=== PATIENT | male | born 1955 | race Caucasian/White ===

== ENCOUNTER 2017-02-09 17:17 | Inpatient (IN) | payer OTHER ==
[~2017-02-09] VITALS: Ht 172.7 cm; Wt 53.2 kg
[2017-02-09] MEDS ORDERED: IV NORMAL SALINE 1000 ML BAG IV ONE (17:30)
[2017-02-09] MEDS ORDERED: FINA5TAB11 PO (17:44)
[2017-02-09] MEDS ORDERED: FURO-152 PO (17:44)
[2017-02-09] MEDS ORDERED: LANTUS INSULIN SQ (17:44)
[2017-02-09] MEDS ORDERED: MAGN400T30 PO (17:44)
[2017-02-09] MEDS ORDERED: ACET-2023 PO (17:44)
[2017-02-09] MEDS ORDERED: FERR325T28 PO (17:44)
[2017-02-09] MEDS ORDERED: CHOL50004 PO (17:44)
[2017-02-09] MEDS ORDERED: FAMO-132 PO (17:44)
[2017-02-09] MEDS ORDERED: ATOR40TA PO (17:44)
[2017-02-09] MEDS ORDERED: TAMS0.4C34 PO (17:44)
[2017-02-09] MEDS ORDERED: MECL-102 PO (17:44)
[2017-02-09] MEDS ORDERED: REGULAR INSULIN (17:44)
[2017-02-09] MEDS ORDERED: NA P133E RC (17:44)
[2017-02-09] MEDS ORDERED: GABA-534 PO (17:44)
[2017-02-09] MEDS ORDERED: BUPR150T10 PO (17:44)
[2017-02-09] MEDS ORDERED: ASCO500C16 PO (17:44)
[2017-02-09] MEDS ORDERED: LISI-603 PO (17:44)
[2017-02-09] MEDS ORDERED: CALC0.253 PO (17:44)
[2017-02-09] MEDS ORDERED: ASPI81TA31 PO (17:44)
[2017-02-09] MEDS ORDERED: SENN-167 PO (17:44)
[2017-02-09] MEDS ORDERED: BISA5TAB13 PR (17:44)
[2017-02-09 17:59] LABS: BASOPHILS # (AUTO) 0.1 K/uL (0.0-8.0); BASOPHILS % (AUTO) 0.8 % (0.0-2.0); EOSINOPHILS # (AUTO) 0.1 K/uL (0.0-0.7); EOSINOPHILS % (AUTO) 1.5 % (0.0-7.0); HEMATOCRIT 29.9 % (36.7-47.1); HEMOGLOBIN 10.3 g/dL (12.5-16.3); LYMPHOCYTES # (AUTO) 2.3 K/uL (20.0-40.0); MEAN CORPUSCULAR HGB CONC 34 g/dL (32.5-36.3); MEAN CORPUSCULAR VOLUME 93.2 fL (73.0-96.2); MONOCYTES # (AUTO) 0.7 K/uL (2.0-10.0); MONOCYTES % (AUTO) 7.9 % (0.0-11.0); NEUTROPHILS # (AUTO) 5.4 K/uL (1.8-8.9); NEUTROPHILS % (AUTO) 62.8 % (38.5-71.5); PLATELET COUNT (AUTO) 253 K/uL (152-348); RED BLOOD CELL COUNT(AUTO) 3.21 MIL/uL (4.06-5.63); WHITE BLOOD COUNT (AUTO) 8.6 K/uL (3.6-10.2)
[2017-02-09 18:01] LABS: CREATININE 1.8 mg/dL (0.6-1.3)
[2017-02-09 18:07] LABS: BILIRUBIN,DIRECT 0.1 mg/dL (0.0-0.2); BILIRUBIN,TOTAL 0.3 mg/dL (0.2-1.0); TOTAL PROTEIN, SERUM 6.8 g/dL (6.4-8.2)
[2017-02-09 18:56] VITALS: BP 157/77
[2017-02-09 19:00] VITALS: BP 152/74
[2017-02-09] MEDS ORDERED: FLEET ENEMA 133 ML BOTTLE RC PRN (19:00)
[2017-02-09] MEDS ORDERED: MECLIZINE HCL 25 MG TABLET PO PRN (19:00)
[2017-02-09] MEDS ORDERED: ONDANSETRON 4 MG/2 ML VIAL IV PRN (19:00)
[2017-02-09] MEDS ORDERED: DEXTROSE 50% 50 ML DISP.SYRIN IV PRN (19:00)
[2017-02-09] MEDS ORDERED: ACETAMINOPHEN 325 MG TABLET PO PRN (19:00)
--- NOTE | 2017-02-09 19:30 | NUR ---
nsg: pt received a/o x 2, no acute distress noted. denies discomfort. tele, SR. has right-sided weakness but able to move all extremities. cont to monitor.
[2017-02-09] MEDS: IV NS 1000 ML 1,000 ML IV PRN (20:18)
[2017-02-09] MEDS: FINASTERIDE 5 MG TABLET PO SCH (20:18)
[2017-02-09] MEDS: SENNOSIDES 1 TABLET PO SCH (20:18)
[2017-02-09] MEDS: ATORVASTATIN 40 MG TABLET PO SCH (20:18)
[2017-02-09] MEDS: ENOXAPARIN SODIUM 40 MG/0.4 ML DISP.SYRIN SQ SCH (20:19)
[2017-02-09] MEDS: BLOOD SUGAR DIAGNOSTIC 1 EACH STRIP VI SCH ×2 (20:34→21:30)
[2017-02-09] MEDS: INSULIN REGULAR, HUMAN 300 UNITS/3 ML VIAL SQ PRN (20:36)
[2017-02-09] MEDS ORDERED: INSULIN DETEMIR 300 UNIT/3 ML CARTRIDGE SQ SCH (21:00)
[2017-02-09 23:49] VITALS: BP 107/57
[2017-02-10 04:00] VITALS: BP 120/67
--- NOTE | 2017-02-10 06:33 | NUR ---
nsg: all needs attended. no change in condition. tele, SR.
[2017-02-10 06:49] LABS: EOSINOPHILS # (AUTO) 0.1 K/uL (0.0-0.7); HEMOGLOBIN 10.1 g/dL (12.5-16.3)
[2017-02-10 06:57] LABS: BILIRUBIN,TOTAL 0.3 mg/dL (0.2-1.0); CREATININE 1.7 mg/dL (0.6-1.3); MAGNESIUM 1.5 mg/dL (1.8-2.4); PHOSPHOROUS 3.5 mg/dL (2.5-4.9); POTASSIUM 3.7 mmol/L (3.5-5.1); TOTAL PROTEIN, SERUM 6.6 g/dL (6.4-8.2)
[2017-02-10 07:05] LABS: BASOPHILS % (AUTO) 0.3 % (0.0-2.0); EOSINOPHILS % (AUTO) 0.7 % (0.0-7.0); HEMATOCRIT 29.3 % (36.7-47.1); LYMPHOCYTES # (AUTO) 2.4 K/uL (20.0-40.0); LYMPHOCYTES % (AUTO) 18.8 % (20.5-51.5); MEAN CORPUSCULAR HEMOGLOBIN 31.8 uug (23.8-33.4); MEAN CORPUSCULAR HGB CONC 35 g/dL (32.5-36.3); MEAN CORPUSCULAR VOLUME 91.9 fL (73.0-96.2); MONOCYTES % (AUTO) 7.8 % (0.0-11.0); NEUTROPHILS # (AUTO) 9.2 K/uL (1.8-8.9); NEUTROPHILS % (AUTO) 72.4 % (38.5-71.5); PLATELET COUNT (AUTO) 262 K/uL (152-348); RED BLOOD CELL COUNT(AUTO) 3.18 MIL/uL (4.06-5.63); WHITE BLOOD COUNT (AUTO) 12.7 K/uL (3.6-10.2)
[2017-02-10 07:07] LABS: THYROID STIMULATING HORMONE 3.077 mIU/mL (0.358-3.740)
[2017-02-10] MEDS: BLOOD SUGAR DIAGNOSTIC 1 EACH STRIP VI SCH ×4 (07:14→20:18)
--- NOTE | 2017-02-10 08:00 | NUR ---
LOW BS 21 REPORTED BY DOROTHY PERRY. PATIENT IS ASYMPTOMATIC, ALERT AND ORIENTED. D50 WAS ADMINISTERED BY IV PROCEED WITH MILK. AT 0750 BS 144. 0750 BS 132. WILL CONTINUE MONITORING
[2017-02-10] MEDS ORDERED: FAMOTIDINE 20 MG TABLET PO SCH (09:00)
[2017-02-10] MEDS: buPROPion SR 150 MG TABLET.SA PO SCH (09:08)
[2017-02-10] MEDS: TAMSULOSIN HCL 0.4 MG CAP.SR.24H PO SCH (09:08)
[2017-02-10] MEDS: CALCITRIOL 0.25 MCG CAPSULE PO SCH (09:08)
[2017-02-10] MEDS: FAMOTIDINE 20 MG TABLET PO SCH (09:09)
[2017-02-10] MEDS: GABAPENTIN 300 MG CAPSULE PO SCH (09:09)
[2017-02-10] MEDS: FERROUS SULFATE 325 MG TABEC PO SCH (09:09)
[2017-02-10] MEDS: ASPIRIN 81 MG TAB.CHEW PO SCH (09:09)
[2017-02-10] MEDS: MAGNESIUM OXIDE 400 MG TABLET PO SCH ×2 (09:09→16:29)
[2017-02-10 11:03] VITALS: BP 122/67
--- NOTE | 2017-02-10 11:33 | NUR ---
BS 130, NO INSULIN GIVEN DUE TO IMBALANCE OF BS, WILL CONTINUE MONITORING
[2017-02-10] MEDS: IV NS 1000 ML 1,000 ML IV PRN (13:06)
[2017-02-10 15:12] VITALS: BP 131/69
[2017-02-10] MEDS: INSULIN REGULAR, HUMAN 300 UNIT/3 ML VIAL SQ PRN (16:23)
--- NOTE | 2017-02-10 18:13 | NUR ---
Patient been in bes sleeping intermittently. No s/s of distress noted. BS been controlled during the day. Patient been able to eat independently with minimum assistance and was able to go to the bathroom safely with nurse help. All medications were crushed and given. Cooperative with all interventions. Safety and comfort provided. Will continue monitoring.
[2017-02-10] MEDS: IV 1/2NS 1000 ML 1,000 ML IV PRN (18:31)
--- NOTE | 2017-02-10 19:30 | NUR ---
Received patient laying comfortably in bed, No acute distress noted. Noted slurred speak. A&O x 4. BRP with minimum assist. Urinating well. Room is clutter free. IVF infusing. Safety initiated. Call light within reach. Will continue to monitor.
[2017-02-10] MEDS: SENNOSIDES 1 TABLET PO SCH (20:16)
[2017-02-10] MEDS: ATORVASTATIN 40 MG TABLET PO SCH (20:16)
[2017-02-10] MEDS: FINASTERIDE 5 MG TABLET PO SCH (20:16)
[2017-02-10] MEDS: ENOXAPARIN SODIUM 40 MG/0.4 ML DISP.SYRIN SQ SCH (20:26)
[2017-02-10] MEDS: INSULIN REGULAR, HUMAN 300 UNITS/3 ML VIAL SQ PRN (20:27)
[2017-02-10 20:30] VITALS: BP 121/65
--- NOTE | 2017-02-11 05:06 | NUR ---
No changes t/o shift. Patient slept t/o shift. No Acute distress noted. Patient took all meds as ordered. Vital signs stable. IVF infusing. Patient was offered snacks around 0200 finished it 100%. BRP. Urinating well. Comfort and safety measures maintained t/o shift. All meds given as ordered. All needs met.
[2017-02-11] MEDS: BLOOD SUGAR DIAGNOSTIC 1 EACH STRIP VI SCH ×4 (06:32→20:13)
[2017-02-11 06:49] VITALS: BP 120/66
[2017-02-11 06:58] LABS: BASOPHILS # (AUTO) 0.1 K/uL (0.0-8.0); BASOPHILS % (AUTO) 0.9 % (0.0-2.0); EOSINOPHILS # (AUTO) 0.2 K/uL (0.0-0.7); EOSINOPHILS % (AUTO) 2.2 % (0.0-7.0); HEMATOCRIT 26.8 % (36.7-47.1); HEMOGLOBIN 9.3 g/dL (12.5-16.3); LYMPHOCYTES # (AUTO) 2.8 K/uL (20.0-40.0); LYMPHOCYTES % (AUTO) 35.1 % (20.5-51.5); MEAN CORPUSCULAR HEMOGLOBIN 32.1 uug (23.8-33.4); MEAN CORPUSCULAR HGB CONC 35 g/dL (32.5-36.3); MEAN CORPUSCULAR VOLUME 92.5 fL (73.0-96.2); MONOCYTES # (AUTO) 0.7 K/uL (2.0-10.0); MONOCYTES % (AUTO) 8.4 % (0.0-11.0); NEUTROPHILS # (AUTO) 4.3 K/uL (1.8-8.9); NEUTROPHILS % (AUTO) 53.4 % (38.5-71.5); PLATELET COUNT (AUTO) 235 K/uL (152-348)
[2017-02-11 07:06] LABS: BILIRUBIN,TOTAL 0.3 mg/dL (0.2-1.0); CREATININE 1.5 mg/dL (0.6-1.3); MAGNESIUM 1.5 mg/dL (1.8-2.4); PHOSPHOROUS 2.9 mg/dL (2.5-4.9); POTASSIUM 4.2 mmol/L (3.5-5.1); TOTAL PROTEIN, SERUM 6.3 g/dL (6.4-8.2)
[2017-02-11] MEDS: TAMSULOSIN HCL 0.4 MG CAP.SR.24H PO SCH (08:50)
[2017-02-11] MEDS: GABAPENTIN 300 MG CAPSULE PO SCH (08:50)
[2017-02-11] MEDS: MAGNESIUM OXIDE 400 MG TABLET PO SCH ×2 (08:50→17:00)
[2017-02-11] MEDS: FERROUS SULFATE 325 MG TABEC PO SCH (08:50)
[2017-02-11] MEDS: FAMOTIDINE 20 MG TABLET PO SCH (08:50)
[2017-02-11] MEDS: buPROPion SR 150 MG TABLET.SA PO SCH (08:50)
[2017-02-11] MEDS: CALCITRIOL 0.25 MCG CAPSULE PO SCH (08:51)
[2017-02-11] MEDS: ASPIRIN 81 MG TAB.CHEW PO SCH (08:51)
[2017-02-11 11:32] VITALS: BP 127/68
[2017-02-11] MEDS: INSULIN REGULAR, HUMAN 300 UNIT/3 ML VIAL SQ PRN (11:38)
[2017-02-11] MEDS: IV 1/2NS 1000 ML 1,000 ML IV PRN (12:26)
[2017-02-11] MEDS ORDERED: MAGNESIUM SULFATE/D5W 100 ML IV SCH (13:30)
[2017-02-11 15:34] VITALS: BP 123/61
--- NOTE | 2017-02-11 19:30 | NUR ---
Received patient laying comfortably in bed. No acute distress noted. A&O x 3 but hard of speaking possibly due to past CVA. IVF infusing on the Right FA. Patient calls to use the restroom with standby assist. Room remains clutter free. Bed is in low and locked position. Safety initiated, call light within reach, will continue to monitor.
[2017-02-11] MEDS: ATORVASTATIN 40 MG TABLET PO SCH (20:09)
[2017-02-11] MEDS: SENNOSIDES 1 TABLET PO SCH (20:09)
[2017-02-11] MEDS: FINASTERIDE 5 MG TABLET PO SCH (20:09)
[2017-02-11] MEDS: INSULIN REGULAR, HUMAN 300 UNITS/3 ML VIAL SQ PRN (20:20)
[2017-02-11] MEDS: ENOXAPARIN SODIUM 40 MG/0.4 ML DISP.SYRIN SQ SCH (20:20)
[2017-02-11 20:40] VITALS: BP 134/76
[2017-02-12 04:28] VITALS: BP 143/75
--- NOTE | 2017-02-12 05:16 | NUR ---
No changes t/o shift. Patient slept t/o shift. Difficult time speaking. IVF infusing. BRP. Room kept clutter free. Bed is in low and locked position. Offered snack, finished 100%. Safety and comfort measures maintained t/o shift. All meds given as ordered. All needs met.
--- NOTE | 2017-02-12 05:48 | NUR ---
Patient refused blood work.
--- NOTE | 2017-02-12 06:26 | NUR ---
Patient refused IV Fluids. will continue to monitor.
[2017-02-12] MEDS: BLOOD SUGAR DIAGNOSTIC 1 EACH STRIP VI SCH ×3 (06:31→17:00)
[2017-02-12 07:36] LABS: CREATININE 1.5 mg/dL (0.6-1.3); MAGNESIUM 1.8 mg/dL (1.8-2.4); POTASSIUM 4.2 mmol/L (3.5-5.1)
[2017-02-12] MEDS: TAMSULOSIN HCL 0.4 MG CAP.SR.24H PO SCH (09:12)
[2017-02-12] MEDS: FAMOTIDINE 20 MG TABLET PO SCH (09:12)
[2017-02-12] MEDS: MAGNESIUM OXIDE 400 MG TABLET PO SCH ×2 (09:12→18:01)
[2017-02-12] MEDS: FERROUS SULFATE 325 MG TABEC PO SCH (09:12)
[2017-02-12] MEDS: CALCITRIOL 0.25 MCG CAPSULE PO SCH (09:12)
[2017-02-12] MEDS: GABAPENTIN 300 MG CAPSULE PO SCH (09:12)
[2017-02-12] MEDS: buPROPion SR 150 MG TABLET.SA PO SCH (09:12)
[2017-02-12] MEDS: ASPIRIN 81 MG TAB.CHEW PO SCH (09:12)
[2017-02-12 11:24] VITALS: BP 119/69
[2017-02-12] MEDS: INSULIN REGULAR, HUMAN 300 UNIT/3 ML VIAL SQ PRN (13:30)
[2017-02-12 15:38] VITALS: BP 125/73
[2017-02-12 16:54] LABS: *BILIRUBIN,URIN NEGATIVE (NEGATIVE); *BLOOD, URINE NEGATIVE (NEGATIVE); *CLARITY,URINE CLEAR (CLEAR); *COLOR,URINE YELLOW (YELLOW); *KETONES,URINE NEGATIVE (NEGATIVE); *PROTEIN,URINE NEGATIVE (NEGATIVE); *UROBILINOGEN,URINE 0.2 E.U./dl (NORMAL); LEUKOCYTE ESTERASE ,URINE NEGATIVE (NEGATIVE); NITRITE, URINE NEGATIVE (NEGATIVE); PH,URINE 5.5 (5.0-8.0)
[2017-02-12 17:01] LABS: *CREATININE,URINE 38.8 mg/dL (30-125); *URINE TOTAL PROTEIN RANDOM 8.6 mg/dL (<150/24HR)
[2017-02-12 17:48] LABS: UGLUCOSE 2+ (NEGATIVE)
[2017-02-12 17:50] LABS: WBC,URINE 0-3 /HPF (0-3)
[2017-02-12] MEDS ORDERED: INSU100C SQ (17:56)
[2017-02-12] MEDS ORDERED: LANTUS INSULIN SQ (17:56)
[2017-02-12] MEDS ORDERED: INSU100C SUBCUT (18:21)
--- NOTE | 2017-02-12 20:04 | NUR ---
Received patient laying in bed, ready for discharge. Hep lock removed, IV cannula with tip intact. Covered the site with dry dressing. Assisted patient in changing hi clothes. Patient back in back waiting for ambulance.
[2017-02-12 20:12] VITALS: BP 123/76
[2017-02-12] MEDS: FINASTERIDE 5 MG TABLET PO SCH (22:06)
[2017-02-12] MEDS: SENNOSIDES 1 TABLET PO SCH (22:06)
[2017-02-12] MEDS: ATORVASTATIN 40 MG TABLET PO SCH (22:06)
[2017-02-12] MEDS: INSULIN REGULAR, HUMAN 300 UNITS/3 ML VIAL SQ PRN (22:40)
--- NOTE | 2017-02-12 22:40 | NUR ---
All due meds. given, tolerated well. Accu check done, blood sugar 250 mg/dL, 4 units humulin R given.
[2017-02-12] MEDS: ENOXAPARIN SODIUM 40 MG/0.4 ML DISP.SYRIN SQ SCH (22:41)
--- NOTE | 2017-02-12 22:46 | NUR ---
Picked up by [facility] unit [facility]. Endorsed to ambulance transport all the discharge papers.Vitals signs taken WNL BP 126/78, T 97.7, P 85, R 18, O2 on room air 98%.
[2017-02-13 12:07] LABS: A/G RATIO 1.3 (0.7-1.7); ALBUMIN 3.4 g/dL (2.9-4.4); ALPHA-1-GLOBULIN 0.2 g/dL (0.0-0.4); ALPHA-2-GLOBULIN 0.6 g/dL (0.4-1.0); BETA GLOBULIN 0.6 g/dL (0.7-1.3); GAMMA GLOBULIN 1.2 g/dL (0.4-1.8); GLOBULIN, TOTAL 2.6 g/dL (2.2-3.9); M-SPIKE Not Observed g/dL (Not Observed)
== END 2017-02-12 22:30 | DRG 637 ==
LOC: ER 17:18 → TELE 18:25 → MED 02-10 12:15
PROVIDERS: ADMIT Nurse Practitioner Acute Care; ATTEND Nurse Practitioner Acute Care
DX: E11.65 Type 2 diabetes mellitus with hyperglycemia (principal); E43 Unspecified severe protein-calorie malnutrition; N17.0 Acute kidney failure with tubular necrosis; E87.0 Hyperosmolality and hypernatremia; R13.10 Dysphagia, unspecified; N25.0 Renal osteodystrophy; E11.649 Type 2 diabetes mellitus with hypoglycemia without coma; I69.351 Hemiplegia and hemiparesis following cerebral infarction affecting right dominant side; Z68.1 Body mass index [BMI] 19.9 or less, adult; E11.21 Type 2 diabetes mellitus with diabetic nephropathy; E11.22 Type 2 diabetes mellitus with diabetic chronic kidney disease; E11.42 Type 2 diabetes mellitus with diabetic polyneuropathy; I12.9 Hypertensive chronic kidney disease with stage 1 through stage 4 chronic kidney disease, or unspecified chronic kidney disease; N18.3 Chronic kidney disease, stage 3 (moderate); Z79.4 Long term (current) use of insulin; N40.0 Benign prostatic hyperplasia without lower urinary tract symptoms; K21.9 Gastro-esophageal reflux disease without esophagitis; I25.10 Atherosclerotic heart disease of native coronary artery without angina pectoris; F09 Unspecified mental disorder due to known physiological condition; D63.8 Anemia in other chronic diseases classified elsewhere; E78.5 Hyperlipidemia, unspecified; G31.84 Mild cognitive impairment of uncertain or unknown etiology
CPT/HCPCS: 36415; 70030-TC; 71010; 76770; 83690; 83735; 83970; 84100; 84155; 84156; 84165; 84300; 84443; 85025; 87086; 93005; 93307; A4663; J1650; J1815; J3475; J3490; J7030; J7042

== ENCOUNTER 2017-06-15 23:09 | Inpatient (IN) | payer MEDICARE, OTHER ==
[~2017-06-15] VITALS: Ht 157.5 cm; Wt 53.1 kg
[~2017-06-15 23:09] MED LIST: ACET-2023 PO; ASCO500C16 PO; ASPI81TA31 PO; ATOR40TA PO; BISA5TAB13 PR; BUPR150T10 PO; CALC0.253 PO; CHOL50004 PO; FAMO-132 PO; FERR325T28 PO; FINA5TAB11 PO; FURO-152 PO; GABA-534 PO; INSU100C SQ; INSU100C SUBCUT; LANTUS INSULIN SQ; LISI-603 PO; MAGN400T30 PO; MECL-102 PO; NA P133E RC; REGULAR INSULIN; SENN-167 PO; TAMS0.4C34 PO
--- NOTE | 2017-06-15 23:25 | NUR ---
DR MICHAEL WINSLOW MD AT BEDSIDE FOR MSE.
--- NOTE | 2017-06-15 23:39 | NUR ---
CODE SEPSIS ACTIVATED
[2017-06-15] MEDS ORDERED: ACETAMINOPHEN ES 500 MG TABLET PO ONE (23:45)
[2017-06-16] MEDS ORDERED: FURO20TA4 PO (00:18)
[2017-06-16] MEDS ORDERED: FINA5TAB11 PO (00:18)
[2017-06-16] MEDS ORDERED: LISI-603 PO (00:18)
[2017-06-16] MEDS ORDERED: INSU100V7 SQ (00:18)
[2017-06-16] MEDS ORDERED: ATOR40TA PO (00:18)
[2017-06-16] MEDS ORDERED: GABA-534 PO (00:18)
[2017-06-16] MEDS ORDERED: TAMS0.4C34 PO (00:18)
[2017-06-16] MEDS ORDERED: BUPR150T10 PO (00:18)
[2017-06-16] MEDS ORDERED: FAMO20TA8 PO (00:18)
--- NOTE | 2017-06-16 00:20 | NUR ---
XRAY AT PT BEDSIDE.
[2017-06-16 00:34] LABS: BASOPHILS # (AUTO) 0.1 K/uL (0.0-8.0); BASOPHILS % (AUTO) 0.5 % (0.0-2.0); EOSINOPHILS # (AUTO) 0.1 K/uL (0.0-0.7); EOSINOPHILS % (AUTO) 0.6 % (0.0-7.0); HEMATOCRIT 31.7 % (36.7-47.1); HEMOGLOBIN 11.5 g/dL (12.5-16.3); LYMPHOCYTES # (AUTO) 2.3 K/uL (20.0-40.0); LYMPHOCYTES % (AUTO) 21.1 % (20.5-51.5); MEAN CORPUSCULAR HEMOGLOBIN 33.2 uug (23.8-33.4); MEAN CORPUSCULAR HGB CONC 36 g/dL (32.5-36.3); MEAN CORPUSCULAR VOLUME 91.6 fL (73.0-96.2); MONOCYTES # (AUTO) 0.8 K/uL (2.0-10.0); NEUTROPHILS # (AUTO) 7.7 K/uL (1.8-8.9); NEUTROPHILS % (AUTO) 70.8 % (38.5-71.5); PLATELET COUNT (AUTO) 241 K/uL (152-348); RED BLOOD CELL COUNT(AUTO) 3.46 MIL/uL (4.06-5.63); WHITE BLOOD COUNT (AUTO) 10.8 K/uL (3.6-10.2)
[2017-06-16 00:46] LABS: BILIRUBIN,DIRECT 0.1 mg/dL (0.0-0.2); BILIRUBIN,TOTAL 0.4 mg/dL (0.2-1.0); CREATININE 2.1 mg/dL (0.6-1.3); POTASSIUM 3.4 mmol/L (3.5-5.1); TOTAL PROTEIN, SERUM 7.5 g/dL (6.4-8.2)
[2017-06-16] MEDS ORDERED: DEXTROSE 50% 50 ML DISP.SYRIN ONE ×2 (00:55→02:48)
[2017-06-16] MEDS ORDERED: DEXTROSE 50% 50 ML DISP.SYRIN IV ONE ×2 (01:00→03:00)
[2017-06-16] MEDS ORDERED: IV NORMAL SALINE 1000 ML BAG IV ONE (01:00)
[2017-06-16] MEDS ORDERED: PIPERACILLIN SODIUM/TAZOBACTAM 3.375 G in IV DEXTROSE 5% 50 ML IV ONE (01:30)
[2017-06-16] MEDS ORDERED: PIPERACILLIN/TAZOBACTAM/D5W 50 ML IV ONE (01:35)
--- NOTE | 2017-06-16 02:04 | NUR ---
ACCOMPANIED PT FOR RADIOLOGY FOR CT.
[2017-06-16] MEDS ORDERED: IV D5 1/2 NS 1000 ML 1,000 ML IV ONE (03:00)
[2017-06-16 03:40] LABS: *BILIRUBIN,URIN NEGATIVE (NEGATIVE); *BLOOD, URINE 1+ (NEGATIVE); *CLARITY,URINE SLIGHTLY CLOUDY (CLEAR); *COLOR,URINE YELLOW (YELLOW); *KETONES,URINE NEGATIVE (NEGATIVE); *PROTEIN,URINE NEGATIVE (NEGATIVE); *UROBILINOGEN,URINE 0.2 E.U./dl (NORMAL); LEUKOCYTE ESTERASE ,URINE NEGATIVE (NEGATIVE); NITRITE, URINE NEGATIVE (NEGATIVE)
[2017-06-16 03:48] LABS: UGLUCOSE 2+ (NEGATIVE)
[2017-06-16 03:55] LABS: BACTERIA,URINE NONE SEEN /HPF (NONE SEEN); SQUAMOUS EPITHELIAL CELL,UR FEW /HPF (NONE SEEN); WBC,URINE 0-3 /HPF (0-3)
[2017-06-16 03:56] LABS: URINE AMORPHOUS URATE MODERATE /HPF
[2017-06-16] MEDS ORDERED: IV D5 1/2 NS 1000 ML 1,000 ML IV PRN (05:29)
[2017-06-16] MEDS ORDERED: ONDANSETRON 4 MG/2 ML VIAL IV PRN (05:30)
[2017-06-16] MEDS ORDERED: HYDROCODONE/APAP 5-325MG TABLET PO PRN (05:30)
[2017-06-16] MEDS ORDERED: Z GUARD REMEDY PASTE 57 GM TUBE TOP PRN (05:30)
[2017-06-16] MEDS ORDERED: ACETAMINOPHEN 325 MG TABLET PO PRN (05:30)
[2017-06-16] MEDS ORDERED: MAGNESIUM HYDROXIDE 30 ML LIQUID UDC PO PRN (05:30)
--- NOTE | 2017-06-16 06:00 | NUR ---
EKG ordered by ED. Pt not in room at this time. comb fixer notified. EKG unable to be done at this time.
--- NOTE | 2017-06-16 06:06 | NUR ---
REPORT GIVEN TO DOROTHY THRASHER.
[2017-06-16 06:35] VITALS: BP 114/68
--- NOTE | 2017-06-16 06:35 | NUR ---
RECEIVED PATIENT VIA GURNEY FROM ER. PATIENT IS ALERT TO SELF. [place] SPEAKING ONLY. PLACED ON TELE ORDERED, SR WITH PVC'S. VS WNL. PATIENT MADE COMFORTABLE IN BED. NO S/S OF PAIN OR DISCOMFORT. NO RESP. DISTRESS NOTED. BED ALARM ON. CALL LIGHT IN REACH. ALL NEEDS ATTENDED. WILL CONTINUE TO MONITOR.
--- NOTE | 2017-06-16 06:37 | NUR ---
Pt. admitted to TELE, under care of Dr. LUCAS Belongs List completed
[2017-06-16] MEDS ORDERED: PIPERACILLIN/TAZOBACTAM/D5W 2.25 G in PREMIXED 1 EACH IV SCH (07:00)
[2017-06-16 07:18] LABS: BILIRUBIN,TOTAL 0.6 mg/dL (0.2-1.0); POTASSIUM 4.1 mmol/L (3.5-5.1); TOTAL PROTEIN, SERUM 6.7 g/dL (6.4-8.2)
[2017-06-16 07:38] LABS: BASOPHILS # (AUTO) 0.1 K/uL (0.0-8.0); BASOPHILS % (AUTO) 0.5 % (0.0-2.0); EOSINOPHILS % (AUTO) 0.3 % (0.0-7.0); HEMATOCRIT 30.7 % (36.7-47.1); HEMOGLOBIN 10.6 g/dL (12.5-16.3); LYMPHOCYTES # (AUTO) 2.1 K/uL (20.0-40.0); LYMPHOCYTES % (AUTO) 16.4 % (20.5-51.5); MEAN CORPUSCULAR HEMOGLOBIN 31.7 uug (23.8-33.4); MEAN CORPUSCULAR HGB CONC 34 g/dL (32.5-36.3); MEAN CORPUSCULAR VOLUME 92.1 fL (73.0-96.2); MONOCYTES # (AUTO) 0.7 K/uL (2.0-10.0); MONOCYTES % (AUTO) 5.5 % (0.0-11.0); NEUTROPHILS # (AUTO) 9.9 K/uL (1.8-8.9); NEUTROPHILS % (AUTO) 77.3 % (38.5-71.5); PLATELET COUNT (AUTO) 188 K/uL (152-348); RED BLOOD CELL COUNT(AUTO) 3.33 MIL/uL (4.06-5.63); WHITE BLOOD COUNT (AUTO) 12.9 K/uL (3.6-10.2)
[2017-06-16] MEDS ORDERED: PIPERACILLIN/TAZOBACTAM/D5W 2.25 G in PREMIXED 1 EACH IV ONE (08:30)
[2017-06-16] MEDS: BLOOD SUGAR DIAGNOSTIC 1 EACH STRIP VI SCH ×5 (10:01→20:43)
[2017-06-16 11:19] VITALS: BP 117/64
[2017-06-16] MEDS: PIPERACILLIN/TAZOBACTAM/D5W 2.25 G in PREMIXED 1 EACH IV SCH ×3 (11:55→23:54)
[2017-06-16] MEDS ORDERED: DEXTROSE 50% 50 ML DISP.SYRIN IV PRN (12:15)
[2017-06-16] MEDS: INSULIN REGULAR, HUMAN 300 UNIT/3 ML VIAL SQ PRN ×2 (12:45→16:25)
[2017-06-16] MEDS: IV NS 1000 ML 1,000 ML IV PRN (12:49)
[2017-06-16 15:22] VITALS: BP 122/71
--- NOTE | 2017-06-16 18:36 | NUR ---
PATIENT STARTED CHOKING ON HIS FOOD. CALLED PUBLIC SAFETY TEACHER MELVINA FOR ORDERS, CHEST XRAY TO R/O ASPIRATION PNA, SOFT MECHANICAL DIET AND SWALLOW EVAL. PATIENT HAD A HISTORY OF STROKE TWO YEARS AGO. PATIENT IS STABLE AND SAFE AT THIS MOMENT. BS SUGAR HAVE BEEN CONTROLLED ON MY SHIFT, HIS BLOOD CONTINUE TO BE HIGH. HE MIGHT BENEFIT FOR A HIGHER LEVEL OF SLIDING SCALE. WILL ENDORSE TO THE NEXT SHIFT NURSE.
[2017-06-16 20:16] VITALS: BP 111/64
[2017-06-16] MEDS: ATORVASTATIN 40 MG TABLET PO SCH (20:32)
[2017-06-16] MEDS: FAMOTIDINE 20 MG TABLET PO SCH (20:32)
[2017-06-16] MEDS: SENNOSIDES 1 TABLET PO SCH (20:32)
[2017-06-16] MEDS: HEPARIN SODIUM,PORCINE 5,000 UNITS/ML VIAL SQ SCH (20:35)
[2017-06-17] MEDS: BLOOD SUGAR DIAGNOSTIC 1 EACH STRIP VI SCH ×6 (00:03→20:24)
[2017-06-17 00:34] VITALS: BP 115/64
[2017-06-17 04:00] VITALS: BP 125/67
[2017-06-17] MEDS: PIPERACILLIN/TAZOBACTAM/D5W 2.25 G in PREMIXED 1 EACH IV SCH ×2 (05:09→11:39)
--- NOTE | 2017-06-17 06:00 | NUR ---
PT AWAKE, ALERT, BUT SPEECH IS INCOHERENT, SLURRED SPEECH FROM PREVIOUS STOKE. MEDS CRUSHED, TOLERATED DRINKING JUICE BUT COUGHS WITH SIPS OF MILK. GIVEN WHEN MIDNIGHT FINGERSTICK WAS 69MG/DL. IV FLUIDS INFUSING WITH ANTIBIOTICS,VSS,AFEBRILE, SINUS RHYTHM ON MONITOR. WILL CONTINUE TO MONITOR.
[2017-06-17 06:44] LABS: BASOPHILS # (AUTO) 0.1 K/uL (0.0-8.0); BASOPHILS % (AUTO) 0.6 % (0.0-2.0); EOSINOPHILS # (AUTO) 0.1 K/uL (0.0-0.7); EOSINOPHILS % (AUTO) 1.5 % (0.0-7.0); LYMPHOCYTES # (AUTO) 2.6 K/uL (20.0-40.0); LYMPHOCYTES % (AUTO) 30.5 % (20.5-51.5); MEAN CORPUSCULAR HEMOGLOBIN 32.1 uug (23.8-33.4); MEAN CORPUSCULAR HGB CONC 35 g/dL (32.5-36.3); MEAN CORPUSCULAR VOLUME 92.2 fL (73.0-96.2); MONOCYTES # (AUTO) 0.7 K/uL (2.0-10.0); MONOCYTES % (AUTO) 8.4 % (0.0-11.0); PLATELET COUNT (AUTO) 189 K/uL (152-348); RED BLOOD CELL COUNT(AUTO) 2.85 MIL/uL (4.06-5.63)
[2017-06-17 06:54] LABS: HEMATOCRIT 26.3 % (36.7-47.1); HEMOGLOBIN 9.2 g/dL (12.5-16.3); WHITE BLOOD COUNT (AUTO) 8.5 K/uL (3.6-10.2)
--- NOTE | 2017-06-17 07:20 | NUR ---
Received pt awake in bed in a supine semi fowlers position. Pt speaks and understands Kosovan. No immediate s/s of pain, distress, discomfort or SOB.
[2017-06-17 07:23] LABS: BILIRUBIN,TOTAL 0.3 mg/dL (0.2-1.0); CREATININE 1.9 mg/dL (0.6-1.3); MAGNESIUM 1.3 mg/dL (1.8-2.4); PHOSPHOROUS 2.9 mg/dL (2.5-4.9); POTASSIUM 4.4 mmol/L (3.5-5.1); TOTAL PROTEIN, SERUM 5.4 g/dL (6.4-8.2)
[2017-06-17] MEDS: FINASTERIDE 5 MG TABLET PO SCH (08:39)
[2017-06-17] MEDS: CALCITRIOL 0.25 MCG CAPSULE PO SCH (08:39)
[2017-06-17] MEDS: GABAPENTIN 300 MG CAPSULE PO SCH (08:39)
[2017-06-17] MEDS: ASPIRIN 81 MG TAB.CHEW PO SCH (08:39)
[2017-06-17] MEDS: buPROPion SR 150 MG TABLET.SA PO SCH (08:39)
[2017-06-17] MEDS: FAMOTIDINE 20 MG TABLET PO SCH ×2 (08:39→20:18)
[2017-06-17] MEDS: TAMSULOSIN HCL 0.4 MG CAP.SR.24H PO SCH (08:39)
[2017-06-17] MEDS: FERROUS SULFATE 325 MG TABEC PO SCH (08:40)
[2017-06-17] MEDS: HEPARIN SODIUM,PORCINE 5,000 UNITS/ML VIAL SQ SCH ×2 (08:41→20:18)
[2017-06-17] MEDS ORDERED: DEXTROSE 50% 50 ML DISP.SYRIN IV PRN (11:15)
--- NOTE | 2017-06-17 11:45 | NUR ---
Ex , Rosalinda in the room keeping pt accompany. Ex- states that his food should be blended, explained to her that he has a soft diet and a swallow evaluation pending.
[2017-06-17 12:00] VITALS: BP 140/72
[2017-06-17] MEDS: INSULIN REGULAR, HUMAN 300 UNIT/3 ML VIAL SQ PRN ×3 (12:21→20:26)
[2017-06-17] MEDS: MAGNESIUM SULFATE/D5W 100 ML IV SCH ×2 (15:18→16:19)
[2017-06-17 15:51] VITALS: BP 116/64
--- NOTE | 2017-06-17 15:57 | NUR ---
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 Isolation contact in place
--- NOTE | 2017-06-17 19:07 | NUR ---
Pt is Urdu speaking, and to communicated verbal but difficult to understand at times. Compliant with nursing care and medications. Pt is noted to eat meals on his own. No O2 in use, hydration running at 60cc/hr, no immediate s/s of pain, distress, discomfort or SOB. Bed at lowest position for safety and call light within reach for assistance. 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
[2017-06-17] MEDS: SENNOSIDES 1 TABLET PO SCH (20:18)
[2017-06-17 20:19] VITALS: BP 134/64
[2017-06-17] MEDS: ATORVASTATIN 40 MG TABLET PO SCH (20:19)
[2017-06-17] MEDS: MUPIROCIN 2% OINT 22 GM TUBE NS SCH (20:19)
[2017-06-17] MEDS ORDERED: MUPIROCIN 2% OINT 22 GM TUBE NS SCH (21:00)
[2017-06-17] MEDS: IV NS 1000 ML 1,000 ML IV PRN (22:40)
--- NOTE | 2017-06-17 23:02 | NUR ---
RECEIVED PT AWAKE, ALERT AND ORIENTEDX4.PT SHOWS NO SIGNS OF ACUTE DISTRESS. PT VITAL SIGNS WITHIN NORMAL LIMIT. PT IV INTACT AND PATENT. PACHECO CATHETER INTACT.PT HAS COUGH. CALL LIGHT WITHIN REACH. BED ALARM ON AND IN LOW POSITION, SIDE RAILSX2. WILL CONTINUE TO MONITOR.
[2017-06-18 04:25] VITALS: BP 125/64
[2017-06-18 06:06] LABS: BASOPHILS # (AUTO) 0.1 K/uL (0.0-8.0); BASOPHILS % (AUTO) 0.6 % (0.0-2.0); EOSINOPHILS # (AUTO) 0.2 K/uL (0.0-0.7); EOSINOPHILS % (AUTO) 1.3 % (0.0-7.0); HEMATOCRIT 27.4 % (36.7-47.1); HEMOGLOBIN 9.4 g/dL (12.5-16.3); LYMPHOCYTES # (AUTO) 2.2 K/uL (20.0-40.0); LYMPHOCYTES % (AUTO) 18.1 % (20.5-51.5); MEAN CORPUSCULAR HEMOGLOBIN 31.3 uug (23.8-33.4); MEAN CORPUSCULAR HGB CONC 34 g/dL (32.5-36.3); MEAN CORPUSCULAR VOLUME 90.9 fL (73.0-96.2); MONOCYTES # (AUTO) 0.9 K/uL (2.0-10.0); MONOCYTES % (AUTO) 7.3 % (0.0-11.0); NEUTROPHILS # (AUTO) 8.8 K/uL (1.8-8.9); NEUTROPHILS % (AUTO) 72.7 % (38.5-71.5); PLATELET COUNT (AUTO) 196 K/uL (152-348); RED BLOOD CELL COUNT(AUTO) 3.01 MIL/uL (4.06-5.63)
--- NOTE | 2017-06-18 06:17 | NUR ---
PT SLEPT THROUGHOUT THE SHIFT. PT SHOWS NO SIGNS OF DISTRESS. PT IV INTACT AND PATENT. PACHECO CATHETER INTACT AND FUNCTIONING WELL. BLOOD SUGAR LEVEL WAS 159 AND 107 ON MY SHIFT.PRESCRIBED MEDICATION GIVEN AND PT TOLERATED IT WELL. PT STABLE. CALL LIGHT WITHIN REACH. BED ALARM ON AND IN LOW POSITION, SIDE RAILSX2. WILL ENDORSE TO DAYSHIFT NURSE.
[2017-06-18] MEDS: BLOOD SUGAR DIAGNOSTIC 1 EACH STRIP VI SCH ×4 (06:31→21:17)
[2017-06-18 08:01] LABS: BILIRUBIN,TOTAL 0.3 mg/dL (0.2-1.0); CREATININE 1.7 mg/dL (0.6-1.3); MAGNESIUM 1.8 mg/dL (1.8-2.4); PHOSPHOROUS 3.3 mg/dL (2.5-4.9); POTASSIUM 4.2 mmol/L (3.5-5.1); TOTAL PROTEIN, SERUM 5.6 g/dL (6.4-8.2)
[2017-06-18 08:02] LABS: WHITE BLOOD COUNT (AUTO) 12.1 K/uL (3.6-10.2)
[2017-06-18] MEDS: FAMOTIDINE 20 MG TABLET PO SCH ×2 (08:48→20:43)
[2017-06-18] MEDS: HEPARIN SODIUM,PORCINE 5,000 UNITS/ML VIAL SQ SCH ×2 (08:48→20:46)
[2017-06-18] MEDS: TAMSULOSIN HCL 0.4 MG CAP.SR.24H PO SCH (08:49)
[2017-06-18] MEDS: CALCITRIOL 0.25 MCG CAPSULE PO SCH (08:49)
[2017-06-18] MEDS: buPROPion SR 150 MG TABLET.SA PO SCH (08:49)
[2017-06-18] MEDS: FERROUS SULFATE 325 MG TABEC PO SCH (08:49)
[2017-06-18] MEDS: GABAPENTIN 300 MG CAPSULE PO SCH (08:49)
[2017-06-18] MEDS: FINASTERIDE 5 MG TABLET PO SCH (08:49)
[2017-06-18] MEDS: ASPIRIN 81 MG TAB.CHEW PO SCH (08:49)
[2017-06-18] MEDS: MUPIROCIN 2% OINT 22 GM TUBE NS SCH ×2 (08:51→20:47)
[2017-06-18 11:47] VITALS: BP 133/78
[2017-06-18] MEDS: INSULIN REGULAR, HUMAN 300 UNIT/3 ML VIAL SQ PRN ×3 (11:56→20:55)
[2017-06-18 15:38] VITALS: BP 122/66
[2017-06-18] MEDS: IV NS 1000 ML 1,000 ML IV PRN (16:30)
[2017-06-18 20:21] VITALS: BP 121/62
[2017-06-18] MEDS: SENNOSIDES 1 TABLET PO SCH (20:43)
[2017-06-18] MEDS: ATORVASTATIN 40 MG TABLET PO SCH (20:43)
--- NOTE | 2017-06-18 22:00 | NUR ---
PT IN ROOM ALERT AWAKE SPEAKING IN BH[place]AN[place] IN NO ACUTE DISTRESS. STATES MINIMAL GENERALIZED PAIN. NO S/S OF HYPER/HYPOGLYCEMIA. ON CONTINUOUS NS IV FLUIDS AT 60CC/HR. MAINTAINING CONTACT ISOLATION FOR MRSA NARES. REMINDED TO USE CALL LIGHT FOR ASSISTANCE WHEN NEEDED. F/C INTACT WITH GOOD URINE OUTPUT. WILL CONTINUE TO MONITOR.
[2017-06-18] MEDS: ZOLPIDEM 5 MG TABLET PO PRN (23:31)
--- NOTE | 2017-06-19 05:16 | NUR ---
PT IN ROOM ASLEEP AT THIS TIME. NO S/S OF HYPER/HYPOGLYCEMIA OR FURTHER PAIN. MAINTAINING IV HYDRATION. REMINDED PT TO REQUEST FOR ASSISTANCE WHEN NEEDED. WILL CONTINUE TO MONITOR. V/S ARE WNL.
[2017-06-19] MEDS: BLOOD SUGAR DIAGNOSTIC 1 EACH STRIP VI SCH ×4 (06:30→21:36)
[2017-06-19 06:46] VITALS: BP 122/65
--- NOTE | 2017-06-19 07:15 | NUR ---
RECEIVED REPORT FROM HAT TRIMMER NURSE, PATIENT IN BED ASLEEP, NO DISTRESS NOTED AT THIS TIME, BED IN LOW POSTIION, SIDE RAILS UP X2, BED ALARM ON.
[2017-06-19] MEDS: MUPIROCIN 2% OINT 22 GM TUBE NS SCH ×2 (08:42→21:16)
[2017-06-19] MEDS: FAMOTIDINE 20 MG TABLET PO SCH ×2 (08:43→21:16)
[2017-06-19] MEDS: FERROUS SULFATE 325 MG TABEC PO SCH (08:43)
[2017-06-19] MEDS: buPROPion SR 150 MG TABLET.SA PO SCH (08:43)
[2017-06-19] MEDS: ASPIRIN 81 MG TAB.CHEW PO SCH (08:43)
[2017-06-19] MEDS: FINASTERIDE 5 MG TABLET PO SCH (08:43)
[2017-06-19] MEDS: GABAPENTIN 300 MG CAPSULE PO SCH (08:43)
[2017-06-19] MEDS: TAMSULOSIN HCL 0.4 MG CAP.SR.24H PO SCH (08:43)
[2017-06-19] MEDS: CALCITRIOL 0.25 MCG CAPSULE PO SCH (08:43)
[2017-06-19] MEDS: HEPARIN SODIUM,PORCINE 5,000 UNITS/ML VIAL SQ SCH ×2 (08:44→21:17)
[2017-06-19] MEDS: LISINOPRIL 10 MG TABLET PO SCH (08:47)
[2017-06-19] MEDS: IV NS 1000 ML 1,000 ML IV PRN (09:53)
[2017-06-19 12:00] VITALS: BP 125/74
[2017-06-19] MEDS: INSULIN REGULAR, HUMAN 300 UNIT/3 ML VIAL SQ PRN ×3 (12:18→21:38)
[2017-06-19 16:00] VITALS: BP 138/69
--- NOTE | 2017-06-19 18:41 | NUR ---
PATIENT HAS BEEN COOPERATIVE WITH CARE, OCCASIONALLY HAS OUTBURSTS OF AGITATION AND YELLS OUT. CURRENTLY PATIENT IS IN BED, NO DISTRESS NOTED, BED IN LOW POSITION, SIDE RAILS UPX2.
[2017-06-19 20:00] VITALS: BP 137/70
--- NOTE | 2017-06-19 20:00 | NUR ---
PATIENT AWAKE,ALERT,ABLE TO MAKE NEEDS KNOWN, CONTACT ISOLATION FOR MRSA ON NARES POSITIVE,PATIENT IN NO ACUTE DISTRESS, REORIENTED,ASPIRATION PRECAUTIONS,HOB ELEVATED,SOME NON PRODUCTIVE COUGH NOTED.
[2017-06-19] MEDS: ATORVASTATIN 40 MG TABLET PO SCH (21:16)
[2017-06-19] MEDS: SENNOSIDES 1 TABLET PO SCH (21:16)
[2017-06-19] MEDS: ZOLPIDEM 5 MG TABLET PO PRN (21:53)
--- NOTE | 2017-06-20 01:45 | NUR ---
PATIENT ASLEEP AFTER AMBIEN PO ADMIN PER PATIENT REQUESTED.
[2017-06-20] MEDS: IV NS 1000 ML 1,000 ML IV PRN (02:41)
[2017-06-20 06:00] VITALS: BP 131/72
--- NOTE | 2017-06-20 06:00 | NUR ---
PATIENT SLEEP WELL THROUGH THE NIGHT, NO ACUTE DISTRESS VITALS STABLE
[2017-06-20] MEDS: BLOOD SUGAR DIAGNOSTIC 1 EACH STRIP VI SCH ×2 (06:21→12:20)
[2017-06-20 07:08] LABS: BILIRUBIN,TOTAL 0.2 mg/dL (0.2-1.0); CREATININE 1.5 mg/dL (0.6-1.3); MAGNESIUM 1.4 mg/dL (1.8-2.4); TOTAL PROTEIN, SERUM 5.4 g/dL (6.4-8.2)
--- NOTE | 2017-06-20 07:15 | NUR ---
RECEIVED REPORT FROM NEON LIGHT INSTALLER NURSE, PATIENT IN BED AWAKE, NO DISTRESS NOTED, BED IN LOW POSITION, SIDE RAILS UP X2, BED ALARM ON.
[2017-06-20 07:27] LABS: BASOPHILS # (AUTO) 0.1 K/uL (0.0-8.0); BASOPHILS % (AUTO) 0.5 % (0.0-2.0); EOSINOPHILS # (AUTO) 0.3 K/uL (0.0-0.7); EOSINOPHILS % (AUTO) 2.5 % (0.0-7.0); LYMPHOCYTES # (AUTO) 2.8 K/uL (20.0-40.0); LYMPHOCYTES % (AUTO) 22.8 % (20.5-51.5); MEAN CORPUSCULAR HEMOGLOBIN 31.7 uug (23.8-33.4); MEAN CORPUSCULAR HGB CONC 35 g/dL (32.5-36.3); MEAN CORPUSCULAR VOLUME 91.4 fL (73.0-96.2); MONOCYTES # (AUTO) 0.9 K/uL (2.0-10.0); MONOCYTES % (AUTO) 7.5 % (0.0-11.0); NEUTROPHILS # (AUTO) 8.1 K/uL (1.8-8.9); NEUTROPHILS % (AUTO) 66.7 % (38.5-71.5); PLATELET COUNT (AUTO) 192 K/uL (152-348); RED BLOOD CELL COUNT(AUTO) 2.69 MIL/uL (4.06-5.63); WHITE BLOOD COUNT (AUTO) 12.2 K/uL (3.6-10.2)
[2017-06-20 07:41] LABS: HEMATOCRIT 24.6 % (36.7-47.1); HEMOGLOBIN 8.5 g/dL (12.5-16.3)
[2017-06-20] MEDS ORDERED: MAGNESIUM SULFATE/D5W 100 ML IV SCH (08:30)
[2017-06-20] MEDS: CALCITRIOL 0.25 MCG CAPSULE PO SCH (09:02)
[2017-06-20] MEDS: FINASTERIDE 5 MG TABLET PO SCH (09:02)
[2017-06-20] MEDS: FERROUS SULFATE 325 MG TABEC PO SCH (09:02)
[2017-06-20] MEDS: FAMOTIDINE 20 MG TABLET PO SCH (09:02)
[2017-06-20] MEDS: GABAPENTIN 300 MG CAPSULE PO SCH (09:02)
[2017-06-20] MEDS: TAMSULOSIN HCL 0.4 MG CAP.SR.24H PO SCH (09:02)
[2017-06-20] MEDS: ASPIRIN 81 MG TAB.CHEW PO SCH (09:02)
[2017-06-20] MEDS: buPROPion SR 150 MG TABLET.SA PO SCH (09:02)
[2017-06-20] MEDS: HEPARIN SODIUM,PORCINE 5,000 UNITS/ML VIAL SQ SCH (09:03)
[2017-06-20] MEDS: LISINOPRIL 10 MG TABLET PO SCH (09:03)
[2017-06-20] MEDS: MUPIROCIN 2% OINT 22 GM TUBE NS SCH (09:05)
[2017-06-20] MEDS: MAGNESIUM SULFATE/D5W 100 ML IV SCH ×3 (11:17→13:40)
[2017-06-20 11:22] VITALS: BP 155/79
[2017-06-20] MEDS: INSULIN REGULAR, HUMAN 300 UNIT/3 ML VIAL SQ PRN (12:21)
--- NOTE | 2017-06-20 14:50 | NUR ---
Removed patients noonan catheter.
[2017-06-20 15:05] VITALS: BP 134/65
--- NOTE | 2017-06-20 15:30 | NUR ---
Patient voided in urinal. Discharge teaching performed, patient became frustrated when he could not explain himself due to speech impairment. IV removed. Patient dressed and is awaiting pickup by transport.
--- NOTE | 2017-06-20 16:35 | NUR ---
Patient departed with ambulnz. No distress noted upon departure.
== END 2017-06-20 16:30 | DRG 682 ==
LOC: ER 23:16 → TELE 06-16 05:00 → MED 06-17 12:40
PROVIDERS: ADMIT Internal Medicine; ATTEND Nurse Practitioner Acute Care
DX: N17.0 Acute kidney failure with tubular necrosis (principal); G93.41 Metabolic encephalopathy; E11.649 Type 2 diabetes mellitus with hypoglycemia without coma; E11.22 Type 2 diabetes mellitus with diabetic chronic kidney disease; E87.2 Acidosis; R13.10 Dysphagia, unspecified; I13.0 Hypertensive heart and chronic kidney disease with heart failure and stage 1 through stage 4 chronic kidney disease, or unspecified chronic kidney disease; I50.32 Chronic diastolic (congestive) heart failure; I69.351 Hemiplegia and hemiparesis following cerebral infarction affecting right dominant side; G90.8 Other disorders of autonomic nervous system; E86.0 Dehydration; I69.391 Dysphagia following cerebral infarction; N18.9 Chronic kidney disease, unspecified; E03.9 Hypothyroidism, unspecified; D63.8 Anemia in other chronic diseases classified elsewhere; Z79.4 Long term (current) use of insulin; Z79.82 Long term (current) use of aspirin; Z79.899 Other long term (current) drug therapy; N40.0 Benign prostatic hyperplasia without lower urinary tract symptoms; E87.6 Hypokalemia; M89.9 Disorder of bone, unspecified; G31.84 Mild cognitive impairment of uncertain or unknown etiology; I25.10 Atherosclerotic heart disease of native coronary artery without angina pectoris; K80.20 Calculus of gallbladder without cholecystitis without obstruction; N20.0 Calculus of kidney
CPT/HCPCS: 36415; 70030-TC; 70450; 71045; 71250; 82533; 83605; 83735; 84100; 84443; 85025; 85730; 87040; 87086; 92523; 92526; 93005; 93307; 97112; 97116; 97165; 97530; A4663; J1644; J1815; J2543; J3475; J3490; J7030; J7042